=== PATIENT | male | born 1970 | race Caucasian/White ===

== ENCOUNTER 2023-03-01 12:09 | Day surgery (SDC) | payer BC ==
[2023-02-26 11:04] VITALS: BMI 24.4
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
[~2023-03-01 12:09] MED LIST: DEXAMETHASONE SOD PHOSPHATE 4 MG/ML 1 ML VIAL IV ONE; GENTAMICIN 120 MG in SODIUM CHLORIDE 0.9% 100 ML IVPB PRN; LACTATED RINGERS 1,000 ML IV SCH; LIDOCAINE 1% (10MG/ML) FOR IV START INTRADERMA PRN; METOCLOPRAMIDE 5 MG/ML 2 ML VIAL IVP PRN; MORPHINE SULFATE 4 MG/ML SYRINGE IV PRN; ONDANSETRON 4 MG/2 ML VIAL IVP ONE
[2023-03-01] MEDS ORDERED: ONDANSETRON 4 MG/2 ML VIAL ONE (13:14)
[2023-03-01] MEDS ORDERED: HYDROmorphone (PF) 1 MG/ML ONE (14:33)
[2023-03-01] MEDS ORDERED: NEOSTIGMINE 1 MG/ML 10 ML VIAL ONE (14:33)
[2023-03-01] MEDS ORDERED: PROPOFOL 10 MG/ML 20 ML VIAL IV ONE (14:33)
[2023-03-01] MEDS ORDERED: fentaNYL (PF) 50 MCG/ML 2 ML AMP ONE (14:33)
[2023-03-01] MEDS ORDERED: FUROSEMIDE 10 MG/ML 2 ML VIAL ONE (14:33)
[2023-03-01] MEDS ORDERED: SUCCINYLCHOLINE CHLORIDE 200 MG/10 ML VIAL IV ONE (14:33)
[2023-03-01] MEDS ORDERED: MIDAZOLAM 2 MG/2 ML VIAL ONE (14:33)
[2023-03-01] MEDS ORDERED: LIDOCAINE 2% INJ 20 MG/ML (2 ML VIAL) ONE (14:33)
[2023-03-01] MEDS ORDERED: GLYCOPYRROLATE 0.2 MG/ML 2 ML VIAL ONE (14:33)
[2023-03-01] MEDS ORDERED: ROCURONIUM 10 MG/ML (5 ML VIAL) IV ONE (14:33)
[2023-03-01] MEDS ORDERED: BUPIVACAINE (PF) 0.5% 30 ML VIAL SQ ONE ×2 (15:05→15:52)
[2023-03-01] MEDS ORDERED: ceFAZolin 1,000 MG in SODIUM CHLORIDE 0.9% 1,000 ML IRRIGATION ONE (15:07)
[2023-03-01] MEDS ORDERED: LACTATED RINGERS 1,000 ML IV ONE (15:50)
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
[2023-03-01 16:19] VITALS: TEMP 97.7
[2023-03-01] MEDS ORDERED: KETOROLAC 15 MG/ML 1 ML VIAL IVP ONE (16:30)
[2023-03-01 16:41] VITALS: RESP 18
[2023-03-01 17:04] VITALS: BP 149/77; PULSE 50
== END 2023-03-01 17:33 | disposition home or self-care (01) ==
LOC: OR 12:09
PROVIDERS: ATTEND Urology
DX: T19.1XXA Foreign body in bladder, initial encounter (principal); F17.200 Nicotine dependence, unspecified, uncomplicated; Z82.49 Family history of ischemic heart disease and other diseases of the circulatory system; Z79.899 Other long term (current) drug therapy
CPT/HCPCS: 50045; J2250; J0330; J1100; J1940; J2710; J0690 ×2; J2405; J3010; J1580; J1170; J1885; J2704; J2001; J0665; 88300